=== PATIENT | female | born 1980 | race Two or more races ===

== ENCOUNTER 2017-11-30 10:05 | Outpatient (CLI) | payer OTHER | END 2017-11-30 10:45 | disposition home or self-care (01) | LOC: NUCLEAR 10:05 | DX: R00.2 Palpitations (principal) ==

== ENCOUNTER 2018-10-13 10:45 | Outpatient (CLI) | payer OTHER | END 2018-10-13 10:52 | disposition home or self-care (01) | LOC: LAB 10:45 | DX: Z11.3 Encounter for screening for infections with a predominantly sexual mode of transmission (principal) ==

== ENCOUNTER 2018-10-25 07:27 | Outpatient (CLI) | payer OTHER | END 2018-10-25 07:30 | disposition home or self-care (01) | LOC: LAB 07:27 | DX: R68.89 Other general symptoms and signs (principal) ==

== ENCOUNTER 2018-11-30 06:00 | Day surgery (SDC) | payer OTHER | END 2018-11-30 09:05 | disposition home or self-care (01) | LOC: AMB-ENDOS 06:00 | DX: K29.50 Unspecified chronic gastritis without bleeding (principal) ==

== ENCOUNTER 2018-12-27 12:24 | Outpatient (CLI) | payer OTHER | END 2018-12-27 14:47 | disposition home or self-care (01) | LOC: RAD 12:24 | DX: R07.89 Other chest pain (principal) ==

== ENCOUNTER 2019-05-19 10:16 | Outpatient (CLI) | payer OTHER | END 2019-05-19 11:18 | disposition home or self-care (01) | LOC: MAMO-SONO 10:16 | DX: N60.11 Diffuse cystic mastopathy of right breast (principal); Z12.31 Encounter for screening mammogram for malignant neoplasm of breast; Z87.898 Personal history of other specified conditions ==

== ENCOUNTER → 2019-09-29 14:12 | Outpatient (CLI) | payer OTHER | END | disposition home or self-care (01) | LOC: LAB 14:12 | DX: N83.299 Other ovarian cyst, unspecified side (principal) ==

== ENCOUNTER 2019-12-20 07:34 | Outpatient (CLI) | payer OTHER | END 2019-12-20 13:56 | disposition home or self-care (01) | LOC: LAB 07:34 | DX: Z20.818 Contact with and (suspected) exposure to other bacterial communicable diseases (principal) ==

== ENCOUNTER 2020-02-22 10:44 | Outpatient (CLI) | payer OTHER | END 2020-02-22 10:53 | disposition home or self-care (01) | LOC: MAMO-SONO 10:44 | PROVIDERS: ATTEND Surgery | DX: N64.4 Mastodynia (principal) ==

== ENCOUNTER → 2020-02-27 12:50 | Outpatient (CLI) | payer OTHER | END | disposition home or self-care (01) | LOC: RAD 12:50 | PROVIDERS: ATTEND Colon & Rectal Surgery | DX: R05 Cough (principal); I10 Essential (primary) hypertension ==

== ENCOUNTER 2020-05-04 08:00 | Outpatient (CLI) | payer OTHER | END 2020-05-04 15:00 | disposition home or self-care (01) | LOC: PPH VACUNA 08:00 | DX: Z23 Encounter for immunization (principal) ==

== ENCOUNTER 2020-07-31 13:08 | Outpatient (CLI) | payer OTHER | END 2020-07-31 15:00 | disposition home or self-care (01) | LOC: PPH VACUNA 13:08 | DX: Z23 Encounter for immunization (principal) ==

== ENCOUNTER 2021-03-14 09:07 | Outpatient (CLI) | payer OTHER | END 2021-03-14 14:47 | disposition home or self-care (01) | LOC: MAMO-SONO 09:07 | PROVIDERS: ATTEND Surgery | DX: N63.10 Unspecified lump in the right breast, unspecified quadrant (principal); N63.20 Unspecified lump in the left breast, unspecified quadrant; Z12.31 Encounter for screening mammogram for malignant neoplasm of breast; Z87.898 Personal history of other specified conditions; N64.59 Other signs and symptoms in breast ==

== ENCOUNTER → 2021-03-14 | Outpatient (CLI) | payer OTHER | END | disposition home or self-care (01) | LOC: LAB 12:11 | PROVIDERS: ATTEND Emergency Medicine Pediatric Emergency Medicine | DX: Z03.818 Encounter for observation for suspected exposure to other biological agents ruled out (principal) ==

== ENCOUNTER → 2021-05-14 | Outpatient (CLI) | payer OTHER | END | disposition home or self-care (01) | LOC: PPH VACUNA 08:00 | PROVIDERS: ATTEND Emergency Medicine Pediatric Emergency Medicine | DX: Z23 Encounter for immunization (principal) ==

== ENCOUNTER 2021-05-21 08:00 | Outpatient (CLI) | payer OTHER | END 2021-05-21 08:30 | disposition home or self-care (01) | LOC: PPH VACUNA 08:00 | PROVIDERS: ATTEND Emergency Medicine Pediatric Emergency Medicine | DX: Z23 Encounter for immunization (principal) ==

== ENCOUNTER 2021-12-17 12:10 | Outpatient (CLI) | payer OTHER | END 2021-12-17 16:44 | disposition home or self-care (01) | LOC: LAB 12:10 | PROVIDERS: ATTEND Surgery | DX: Z11.52 Encounter for screening for COVID-19 (principal); Z11.59 Encounter for screening for other viral diseases; Z20.828 Contact with and (suspected) exposure to other viral communicable diseases ==

== ENCOUNTER 2022-04-22 08:00 | Outpatient (CLI) | payer OTHER | END 2022-04-22 08:05 | disposition home or self-care (01) | LOC: PPH VACUNA 08:00 | PROVIDERS: ATTEND Emergency Medicine Pediatric Emergency Medicine | DX: Z23 Encounter for immunization (principal) ==

== ENCOUNTER 2022-05-09 13:35 | Outpatient (CLI) | payer OTHER | END 2022-05-09 13:50 | disposition home or self-care (01) | LOC: MAMO-SONO 13:35 | PROVIDERS: ATTEND Obstetrics & Gynecology | DX: M76.52 Patellar tendinitis, left knee (principal); M76.51 Patellar tendinitis, right knee; Z12.31 Encounter for screening mammogram for malignant neoplasm of breast; N60.11 Diffuse cystic mastopathy of right breast ==

== ENCOUNTER 2022-05-16 14:18 | Outpatient (CLI) | payer OTHER | END 2022-05-16 14:27 | disposition home or self-care (01) | LOC: MRI 14:18 | PROVIDERS: ATTEND Orthopaedic Surgery Sports Medicine | DX: M76.52 Patellar tendinitis, left knee (principal); M76.51 Patellar tendinitis, right knee | CPT/HCPCS: 73721 ==

== ENCOUNTER 2022-07-31 14:00 | Outpatient (CLI) | payer OTHER | END 2022-07-31 14:10 | disposition home or self-care (01) | LOC: PPH VACUNA 14:00 | PROVIDERS: ATTEND Emergency Medicine Pediatric Emergency Medicine | DX: Z23 Encounter for immunization (principal) ==

== ENCOUNTER 2022-11-19 08:42 | Outpatient (CLI) | payer OTHER | END 2022-11-19 08:51 | disposition home or self-care (01) | LOC: SONOGRAMA 08:42 | PROVIDERS: ATTEND Colon & Rectal Surgery | DX: N83.209 Unspecified ovarian cyst, unspecified side (principal) ==

== ENCOUNTER 2023-05-29 13:14 | Outpatient (CLI) | payer OTHER | END 2023-05-29 13:24 | disposition home or self-care (01) | LOC: MAMO-SONO 13:14 | PROVIDERS: ATTEND Obstetrics & Gynecology | DX: N60.11 Diffuse cystic mastopathy of right breast (principal); Z12.31 Encounter for screening mammogram for malignant neoplasm of breast ==

== ENCOUNTER 2024-04-05 15:21 | Outpatient (CLI) | payer OTHER | END 2024-04-05 23:00 | disposition home or self-care (01) | LOC: LAB 15:21 | PROVIDERS: ATTEND Preventive Medicine Occupational Medicine | DX: B19.10 Unspecified viral hepatitis B without hepatic coma (principal) ==

== ENCOUNTER 2024-09-29 11:21 | Outpatient (CLI) | payer OTHER | END 2024-09-29 11:27 | disposition home or self-care (01) | LOC: MAMO-SONO 11:21 | PROVIDERS: ATTEND Obstetrics & Gynecology | DX: N60.11 Diffuse cystic mastopathy of right breast (principal) ==

== ENCOUNTER 2025-05-22 11:06 | Outpatient (CLI) | payer OTHER ==
[2025-05-22 15:40] LABS: VITAMIN D3 25 HYDROXY 49.05 ng/ml (30-120)
== END 2025-05-22 11:08 | disposition home or self-care (01) ==
LOC: LAB 11:06
PROVIDERS: ATTEND Internal Medicine
DX: D51.9 Vitamin B12 deficiency anemia, unspecified (principal); E55.9 Vitamin D deficiency, unspecified

== ENCOUNTER 2025-07-25 14:00 | Outpatient (CLI) | payer OTHER | END 2025-07-25 14:10 | disposition home or self-care (01) | LOC: PPH VACUNA 14:00 | PROVIDERS: ATTEND Emergency Medicine Pediatric Emergency Medicine | DX: Z23 Encounter for immunization (principal) ==

== ENCOUNTER → 2025-08-08 | Day surgery (SDC) | payer OTHER ==
[~2025-08-08] MED LIST: DIPHENHYDRAMINE HCL 50 MG/ML VIAL 1ML IV ONE; FLUMAZENIL 0.5 MG/5 ML ML IV ONE; MIDAZOLAM HCL 2 MG/2 ML VIAL IV ONE; fentaNYL CITRATE 50 MCG/ML AMPUL IV ONE
== END | disposition home or self-care (01) ==
LOC: AMB-ENDOS 06:00
PROVIDERS: ATTEND Surgery
DX: K62.1 Rectal polyp (principal); R19.4 Change in bowel habit; K62.89 Other specified diseases of anus and rectum